=== PATIENT | female | born 1965 | race Caucasian/White ===

== ENCOUNTER 2019-07-20 07:31 | Day surgery (SDC) | payer OTHER, SELFPAY ==
[2019-07-19 09:27] VITALS: BMI 27.9
[2019-07-20 07:53] VITALS: BP 184/93; PULSE 84; RESP 18; TEMP 36.6; O2SAT 98
[2019-07-20] MEDS: sodium chloride 0.9% 1,000 ML 30 ML (07:56)
--- NOTE | 2019-07-20 08:08 | ANES.PREANE2 ---
Pre-Anesthetic Assessment Pre-Anesthetic Assessment: Height/Weight: Height 1.63 m Weight 73.936 kg Temp Pulse Resp BP Pulse Ox 97.9 F 84 18 184/93 98 07/20/19 07:53 07/20/19 07:53 07/20/19 07:53 07/20/19 07:53 07/20/19 07:53 Preop Diagnosis: asd Proposed Procedure: Operation Date: 07/20/19 09:00 Proposed Procedures p Colonoscopy(Not Applicable) - Sami Lai MD Was Beta Oleg taken within 24 hours: Yes Last intake: Intake Last Liquid Date 07/19/19 Last Liquid Time 20:30 Social: Social History: Alcohol and Tobacco Exam: Pre-Anes Outpt Exam: alert, oriented x 3, clear to auscultation bilaterally and regular rate & rhythm Airway: Submandibular: WNL Cervical ROM: WNL MP: 2 Dentition: False and Partials History/ROS: No significant history except as noted and No significant complaints Pulmonary: Pulmonary: None reported CV/HEM: CV/HEM: HTN : : None reported Hepatic: Hepatic: None reported GI: GI: None reported Metabolic: Metabolic: None reported Musc/skel: Musc/skel: None reported Neuropsych: Neuropsych: None reported Anesthetic Plan: ASA status: 2 Anesthesia: Anesthesia Evaluation and MAC Risk of > 500 ml blood loss (7ml/kg in children): No PFSH Anesthesia PFSH: Social History Smoking and tobacco status: current some day smoker Alcohol intake: current Alcohol intake frequency: few times a month Data Anesthesia Cardiac Studies: No Data to Display
--- NOTE | 2019-07-20 09:13 | W.PM.OPSUD ---
Surgery/Procedure H&P Update DATE OF PROCEDURE: July 20, 2019 DATE H&P PERFORMED: 06/25/19 PREOP DIAGNOSIS: asd PLANNED PROCEDURE: Operation Date: 07/20/19 09:00 Proposed Procedures p Colonoscopy(Not Applicable) - Sami Lai MD
[2019-07-20 09:32] VITALS: BP 127/82; PULSE 78; RESP 16; TEMP 36.2; O2SAT 96
[2019-07-20 09:42] VITALS: BP 136/71; PULSE 66; RESP 18; O2SAT 99
== END 2019-07-20 10:02 | disposition home or self-care (01) ==
PROVIDERS: Family Provider Family Medicine; PCP Internal Medicine; Visit Provider Internal Medicine
PROC: 0DJD8ZZ Inspection of Lower Intestinal Tract, Via Natural or Artificial Opening Endoscopic (ICD-10-PCS; CPT 45378; principal; 2019-07-20 09:00)
DX: Z12.11 Encounter for screening for malignant neoplasm of colon (principal); Z83.3 Family history of diabetes mellitus; I10 Essential (primary) hypertension; F17.210 Nicotine dependence, cigarettes, uncomplicated
CPT/HCPCS: 12345; 45378; J2001; J2704; J7030

== ENCOUNTER → 2019-10-19 08:33 | Outpatient (BNVA) | payer OTHER, SELFPAY | PROVIDERS: Family Provider Family Medicine; PCP Internal Medicine; Visit Provider Family Medicine | DX: E78.2 Mixed hyperlipidemia (principal); I10 Essential (primary) hypertension; F17.219 Nicotine dependence, cigarettes, with unspecified nicotine-induced disorders | CPT/HCPCS: 80053; 80061 ==

== ENCOUNTER → 2020-09-04 08:15 | Outpatient (BNVA) | payer OTHER, SELFPAY | PROVIDERS: Family Provider Family Medicine; PCP Internal Medicine; Visit Provider Family Medicine | DX: E78.2 Mixed hyperlipidemia (principal); I10 Essential (primary) hypertension; F17.219 Nicotine dependence, cigarettes, with unspecified nicotine-induced disorders; Z68.27 Body mass index [BMI] 27.0-27.9, adult; Z71.6 Tobacco abuse counseling; Z71.89 Other specified counseling | CPT/HCPCS: 80053; 80061; 82043; 85025 ==

== ENCOUNTER → 2020-09-05 15:18 | Outpatient (BNVA) | payer OTHER, SELFPAY | PROVIDERS: Family Provider Family Medicine; PCP Internal Medicine; Visit Provider Family Medicine | DX: D53.9 Nutritional anemia, unspecified (principal); R73.09 Other abnormal glucose; E78.2 Mixed hyperlipidemia; F17.219 Nicotine dependence, cigarettes, with unspecified nicotine-induced disorders; I10 Essential (primary) hypertension | CPT/HCPCS: 82607; 83036 ==

== ENCOUNTER → 2021-05-08 11:18 | Outpatient (BNVA) | payer OTHER, SELFPAY | PROVIDERS: Family Provider Family Medicine; PCP Family Medicine; Visit Provider Family Medicine | DX: I10 Essential (primary) hypertension (principal) | CPT/HCPCS: 80053 ==

== ENCOUNTER → 2021-07-13 11:45 | Outpatient (BNVA) | payer OTHER, SELFPAY | PROVIDERS: Family Provider Family Medicine; PCP Family Medicine; Visit Provider Nurse Practitioner Family | DX: Z20.822 Contact with and (suspected) exposure to COVID-19 (principal); R50.9 Fever, unspecified; R09.81 Nasal congestion | CPT/HCPCS: 87426 ==

== ENCOUNTER → 2021-11-06 12:08 | Outpatient (BNVA) | payer OTHER, SELFPAY | PROVIDERS: Family Provider Family Medicine; PCP Family Medicine; Visit Provider Family Medicine | DX: I10 Essential (primary) hypertension (principal); K21.9 Gastro-esophageal reflux disease without esophagitis; E78.2 Mixed hyperlipidemia; F17.219 Nicotine dependence, cigarettes, with unspecified nicotine-induced disorders | CPT/HCPCS: 80053; 80061; 82043; 85025 ==

== ENCOUNTER → 2022-06-11 09:31 | Outpatient (BNVA) | payer OTHER, SELFPAY | PROVIDERS: Family Provider Family Medicine; PCP Family Medicine; Visit Provider Family Medicine | DX: R00.2 Palpitations (principal) | CPT/HCPCS: 80048; 84443 ==

== ENCOUNTER 2023-03-18 14:03 | Outpatient (CLI) | payer OTHER, SELFPAY ==
--- NOTE | 2023-03-18 14:20 | XR_ITS ---
WS: [email or web address] Left wrist, 3 views, 03/18/2023 Clinical Data: chronic left wrist pain / s/p fall Comparison: None. Findings: No fractures or dislocations are seen. The carpal bones are intact. There is no soft tissue swelling. The distal radius and ulna are not remarkable. Impression: Negative left wrist.
--- NOTE | 2023-03-18 14:20 | XR_ITS ---
WS: [email or web address] Left foot, 3 views, 03/18/2023 Clinical Data: 5th metatarsal pain Comparison: None. Findings: No fractures or dislocations are seen. No bone destruction or erosion is noted. The joint spaces and soft tissues are normal. Impression: Negative left foot.
== END 2023-03-18 14:04 | disposition home or self-care (01) ==
PROVIDERS: PCP Family Medicine; Visit Provider Family Medicine
DX: M25.532 Pain in left wrist (principal); G89.29 Other chronic pain; M79.672 Pain in left foot; E78.2 Mixed hyperlipidemia; I10 Essential (primary) hypertension
CPT/HCPCS: 73110; 73630; 80053; 80061; 83721; 85025

== ENCOUNTER 2023-04-01 10:05 | Outpatient (CLI) | payer OTHER, SELFPAY ==
--- NOTE | 2023-04-01 10:19 | MM_ITS ---
WS: [email or web address] BILATERAL SCREENING DIGITAL TOMOSYNTHESIS MAMMOGRAM WITH CAD HISTORY: screening COMPARISON: 01/02/2019 Bilateral CC and MLO views with tomosynthesis and synthetic mammography submitted. Computer aided det ection analyzed. Breast composition: There are scattered areas of fibroglandular density. No suspicious masses, microc alcifications or architectural distortion. IMPRESSION: MM/[place] [id number] BI-RADS: 1-Negative FOLLOW UP: 1 Year Follow-up
== END 2023-04-01 10:06 | disposition home or self-care (01) ==
LOC: RAD 10:05
PROVIDERS: PCP Family Medicine; Visit Provider Family Medicine
DX: Z12.31 Encounter for screening mammogram for malignant neoplasm of breast (principal)
CPT/HCPCS: 77063; 77067

== ENCOUNTER → 2024-04-04 11:13 | Outpatient (BNVA) | payer OTHER, SELFPAY | PROVIDERS: PCP Family Medicine; Visit Provider Family Medicine | DX: I10 Essential (primary) hypertension (principal); E78.2 Mixed hyperlipidemia; R53.83 Other fatigue; D75.89 Other specified diseases of blood and blood-forming organs; F41.1 Generalized anxiety disorder; Z23 Encounter for immunization | CPT/HCPCS: 80053; 80061; 82306; 82607; 82746; 84443; 85025 ==

== ENCOUNTER 2024-04-09 08:45 | Outpatient (CLI) | payer OTHER, SELFPAY ==
--- NOTE | 2024-04-09 09:00 | MM_ITS ---
WS: [email or web address] BILATERAL SCREENING DIGITAL TOMOSYNTHESIS MAMMOGRAM WITH CAD HISTORY: breast cancer screening COMPARISON: 04/01/2023, 01/02/2019 Bilateral CC and MLO views with tomosynthesis and synthetic mammography submitted. Computer aided det ection analyzed. Breast composition: The breasts are heterogeneously dense, which may obscure small masses. No suspici ous masses, microcalcifications or architectural distortion. MM/MM scr BI tomosynthesis [id number] IMPRESSION: BI-RADS: 1 - Negative FOLLOW UP: 1 Year Follow-up
== END 2024-04-09 08:46 | disposition home or self-care (01) ==
LOC: RAD 08:46
PROVIDERS: PCP Family Medicine; Visit Provider Family Medicine
DX: Z12.39 Encounter for other screening for malignant neoplasm of breast (principal)
CPT/HCPCS: 77063; 77067

== ENCOUNTER → 2024-06-01 09:08 | Outpatient (BNVA) | payer OTHER, SELFPAY | PROVIDERS: PCP Family Medicine; Visit Provider Family Medicine | DX: E55.9 Vitamin D deficiency, unspecified (principal); R74.8 Abnormal levels of other serum enzymes | CPT/HCPCS: 80053; 82306 ==

== ENCOUNTER 2024-06-22 09:08 | Outpatient (CLI) | payer OTHER, SELFPAY ==
--- NOTE | 2024-06-22 09:36 | XR_ITS ---
WS: [email or web address] Left shoulder, 3 views, 06/22/2024 Clinical Data: pain reduced ROM after fall 1 month ago Comparison: None. Findings: No fractures or dislocations are seen. The AC joint is normal. The adjacent left clavicle, left scapu la and ribs are normal. The soft tissues are unremarkable. XR/XR shoulder LT min 2V* [id number] Impression: Negative left shoulder.
== END 2024-06-22 09:09 | disposition home or self-care (01) ==
PROVIDERS: PCP Family Medicine; Visit Provider Family Medicine
DX: S49.92XA Unspecified injury of left shoulder and upper arm, initial encounter (principal); W19.XXXA Unspecified fall, initial encounter
CPT/HCPCS: 73030

== ENCOUNTER 2024-07-06 12:58 | Outpatient (CLI) | payer OTHER, SELFPAY ==
--- NOTE | 2024-07-06 13:00 | MR_ITS ---
WS: [id number] MRI LEFT SHOULDER NONCONTRAST TECHNIQUE: Sagittal T2, coronal T1, T2 and proton density imaging. Axial gradient PDE imaging. CLINICAL INFORMATION: suspect rotator cuff tear, pain reduced rom after fall COMPARISON: None. FINDINGS: Advanced arthritis AC joint with fluid and edema. Moderate downsloping acromion with subacromial spurring. Impingement on the distal supraspinatus. Moderate joint effusion with tiny calcified loose bodies likely due to small rice bodies. This extends over the humeral head and greater tuberosity with a few tiny intra- articular loose bodies. Biceps tendon appears intact within the bicipital groove. Intra-articular biceps tendon appears intact. High-grade tear involving the distal supraspinatus with acromial impingement and tendinopathy. Slight retraction from the distal insertion measuring 6 to 7 mm. Tiny intrasubstance tear infraspinatus. Normal teres minor. Subscapularis tendon appears intact distally. MR/MR shoulder LT wo con* [id number] IMPRESSION: 1. Advanced arthritis of the AC joint with fluid and edema. Slight impingement on the distal supraspinatus. 2. High-grade tear of the distal supraspinatus distally with slight retraction measuring 6 mm. Tendinopathy supraspinatus. 3. Tiny intrasubstance tear infraspinatus. 4. Normal biceps tendon in the bicipital groove. 5. Moderate joint effusion with tiny loose bodies likely rice bodies.
== END 2024-07-06 12:59 | disposition home or self-care (01) ==
LOC: RAD 13:01
PROVIDERS: PCP Family Medicine; Visit Provider Family Medicine
DX: M75.102 Unspecified rotator cuff tear or rupture of left shoulder, not specified as traumatic (principal); W19.XXXA Unspecified fall, initial encounter; M13.812 Other specified arthritis, left shoulder; R93.6 Abnormal findings on diagnostic imaging of limbs; M25.412 Effusion, left shoulder
CPT/HCPCS: 73221

== ENCOUNTER → 2024-07-25 08:12 | Outpatient (BNVA) | payer OTHER, SELFPAY | PROVIDERS: PCP Family Medicine; Visit Provider Nurse Practitioner | DX: M75.102 Unspecified rotator cuff tear or rupture of left shoulder, not specified as traumatic (principal); M19.012 Primary osteoarthritis, left shoulder; M67.912 Unspecified disorder of synovium and tendon, left shoulder; N30.90 Cystitis, unspecified without hematuria | CPT/HCPCS: 36415; 73030; 80053; 81001; 85025; 87077; 87086; 87186 ==

== ENCOUNTER 2024-08-03 10:48 | Outpatient (CLI) | payer OTHER, SELFPAY ==
[2024-08-03 11:00] LABS: Add Urine Microscopic? NO
[2024-08-03 11:06] LABS: Bilirubin Urine Negative (Negative); Blood Urine Negative (Negative); Glucose Urine UA Negative (Normal); Ketones Urine Negative (Negative); Leukocyte Esterase Urine Negative (Negative); Nitrate Urine Negative (Negative); Protein Urine Negative (Negative); Specific Gravity, Urine 1.011 (1.005-1.030); Urine Appearance Clear (CLEAR); Urine Color Yellow (Yellow); Urobilinogen Urine 0.2 mg/dL (Negative)
[2024-08-03 11:54] LABS: Charge for UA Resulting for Rev
== END 2024-08-03 10:49 | disposition home or self-care (01) ==
LOC: LAB 10:50
PROVIDERS: PCP Family Medicine; Visit Provider Nurse Practitioner
DX: N30.90 Cystitis, unspecified without hematuria (principal)
CPT/HCPCS: 81003

== ENCOUNTER 2024-08-17 05:48 | Day surgery (SDC) | payer OTHER, SELFPAY ==
[2024-08-17] VITALS (9 sets, daily range): BP systolic 113–165; BP diastolic 65–80; PULSE 70–77; RESP 16–17; TEMP 36.1–36.7; O2SAT 92–100; BMI 29.1
[2024-08-17] MEDS: sodium chloride 0.9% 1,000 ML 30 ML IV (06:11)
[2024-08-17] MEDS: acetaminophen 1,000 MG/100 ML PIGGYBACK 400 MG IV (06:12)
[2024-08-17] MEDS: CELEcoxib 200 mg Capsule 400 MG PO (06:16)
[2024-08-17] MEDS: gabapentin 300 mg Capsule PO (06:17)
--- NOTE | 2024-08-17 06:34 | ANES.PREANE2 ---
Pre-Anesthetic Assessment Height/Weight: Height 5 ft 5 in Weight 175 lb Temp Pulse Resp BP Pulse Ox O2 Del Method 98.1 F 72 17 148/77 95 Room Air 08/17/24 06:02 08/17/24 06:02 08/17/24 06:02 08/17/24 06:02 08/17/24 06:02 08/17/24 06:03 Preop Diagnosis: Rotator cuff tear Operation Date: 08/17/24 07:00 Proposed Procedures p Rotator Cuff Repair - Open(Left) - Fabiana Ariza MD s Acromioplasty(Left) - Fabiana Ariza MD s Distal Clavicle Resection(Left) - Fabiana Ariza MD Was Beta Oleg taken within 24 hours: Yes Was Clonidine taken within 24 hours: N/A Last intake: Intake Last Liquid Date 08/16/24 Last Liquid Time 20:00 Last Solid Date 08/16/24 Last Solid Time 18:00 Social Tobacco and No alcohol Exam alert, oriented x 3, clear to auscultation bilaterally and regular rate & rhythm Airway Submandibular: within normal limits Cervical ROM: within normal limits Mallampati: Class III Dentition: false Anesthetic Plan ASA status: 3 Anesthesia: General and Regional (specify below) Other: No prior issues with anesthesia NPO since yesterday evening evening History of hypertension on lisinopril and metoprolol. Preop BP 148/77 History of GERD, controlled with omeprazole Prior Holter monitor showing sinus rhythm METs greater than 4 Plan for general anesthesia with preop nerve block Medications/Allergies Home Medications ?Medication ?Instructions ?Recorded ?Confirmed ?Last Taken ?Type aspirin 81 mg tablet,delayed 81 mg PO DAILY 09/04/20 08/16/24 08/09/24 History release omeprazole 40 mg capsule,delayed 40 mg PO DAILY #90 caps 02/04/22 08/16/24 08/16/24 Rx release tramadol 50 mg tablet 50 mg PO BID PRN pain #60 tabs 06/22/24 08/16/24 08/16/24 Rx atorvastatin 40 mg tablet 40 mg PO DAILY 08/16/24 08/16/24 08/16/24 History lisinopril 5 mg tablet 5 mg PO DAILY 08/16/24 08/16/24 08/16/24 History metoprolol succinate 50 mg 50 mg PO DAILY 08/16/24 08/17/24 08/17/24 History tablet,extended release 24 hr sertraline 100 mg tablet 100 mg PO DAILY 08/16/24 08/16/24 08/16/24 History sertraline 50 mg tablet 50 mg PO DAILY 08/16/24 08/16/24 08/16/24 History Allergies Allergy/AdvReac Type Severity Reaction Status Date / Time Penicillins Allergy Intermediate All over Verified 08/17/24 05:58 swelling diazepam (From Valium) Allergy Mild Unknown Verified 08/17/24 05:58 Current Medications Generic Name Dose Route Start Last Admin Trade Name Freq PRN Reason Stop Dose Admin Sodium Chloride 1,000 mls @ 30 mls/hr 08/17/24 06:00 08/17/24 06:11 Sodium Chloride 0.9% IV 08/18/24 05:59 30 mls/hr .Q24H ADRIANNA Administration PFSH Anesthesia Medical History Tendinopathy of left shoulder Supraspinatus tendon tear Osteoarthritis of acromioclavicular joint Smoker LAYNE (generalized anxiety disorder) GERD (gastroesophageal reflux disease) Pure hyperglyceridemia Right median nerve neuropathy Hyperlipidemia HTN (hypertension), benign Surgical History History of rhinoplasty due to fracture S/P D&C (status post dilation and curettage) x2 Family History Father Heart disease Grandmother Diabetes Social History Smoking and tobacco/nicotine status: current some day tobacco/nicotine user cigarettes Packs smoked per day: 0.50 Alcohol intake: current Alcohol intake frequency: few times a month Alcohol type: beer Substance/Drug Use: never Lives independently: Yes Household members: none Number of children: 1 Current occupational status: employed Current occupation: [employer] Pets and animals: Yes Pets & animals: cat(s) Leisure activites: other Leisure activities details: auctions Special thuy needs: No Agree to transfusion: Yes Data Anesthesia Cardiac Studies: Cardiac Event Monitor 06/21/22
--- NOTE | 2024-08-17 07:01 | P.HPUD_ITS ---
Surgery/Procedure H&P Update DATE OF PROCEDURE: August 17, 2024 DATE H&P PERFORMED: 08/15/24 H&P UPDATE INFORMATION: I have reviewed H&P completed within last 30 days, I have examined patient prior to procedure, No changes to prior documentation and H&P is in [facility] [place] EMR on date indicated PREOP DIAGNOSIS: Rotator cuff tear PRIMARY INDICATION FOR PROCEDURE: Date of Service: 07/06/24 Procedure(s): MR shoulder LT wo con* [id number] MRI LEFT SHOULDER NONCONTRAST IMPRESSION: 1. Advanced arthritis of the AC joint with fluid and edema. Slight impingement on the distal supraspinatus. 2. High-grade tear of the distal supraspinatus distally with slight retraction measuring 6 mm. Tendinopathy supraspinatus. 3. Tiny intrasubstance tear infraspinatus. 4. Normal biceps tendon in the bicipital groove. 5. Moderate joint effusion with tiny loose bodies likely rice bodies. PLANNED PROCEDURE: Operation Date: 08/17/24 07:00 Proposed Procedures p Rotator Cuff Repair - Open(Left) - Fabiana Ariza MD s Acromioplasty(Left) - Fabiana Ariza MD s Distal Clavicle Resection(Left) - Fabiana Ariza MD Related Problem List Diagnoses (1) Tear of left rotator cuff: (2) Osteoarthritis of acromioclavicular joint: (3) Tendinopathy of left shoulder: (4) Supraspinatus tendon tear: Qualifiers: Laterality: left Qualified Code(s): M75.102 - Unspecified rotator cuff tear or rupture of left shoulder, not specified as traumatic
[2024-08-17] MEDS: clindamycin 600 MG/50 ML PREMIX 100 MG IV (07:05)
--- NOTE | 2024-08-17 07:25 | ANES.PROC ---
Anesthesia Procedures Procedure/Date: 08/17/24 Nerve Block ^: Nerve Block 1: Main Anesthesia: general anesthesia Time Out Performed: Yes Consent: requested by attending/covering physician and from patient Nerve block location: interscalene Anesthesia monitors applied: pulse oximetry, EKG, BP cuff and oxygen Nerve block position: supine Anesthetic Used: ropivicaine 0.5% Amount of anesthesia used (mL): 30 Ultrasound used to: recognize landmarks Nerve Stimulator Used?: Yes Interscalene/Femoral BLK: other needle (pjunk 4inch) Injection: neg aspiration of heme Patient Tolerated Procedure: well Complications: none Additional Comments: decadron 4mg added to block
[2024-08-17] MEDS: vancomycin 1,000 MG SDV 1000 MG IRRIGATION (07:54)
--- NOTE | 2024-08-17 09:34 | P.OP_ITS ---
Operative Report Date of procedure: August 17, 2024 Pre-op diagnosis: Left complete rotator cuff tear with impingement and acromioclavicular joint osteoarthritis Post-op diagnosis: Left complete rotator cuff tear with impingement and acromioclavicular joint osteoarthritis Post-op findings: Complete rotator cuff tear involving the distal supraspinatus and infraspinatus tendons. Thickened bursal tissue. Procedure done: Left rotator cuff repair with acromioplasty and distal clavicle resection utilizing a Biosteon anchor 5.5 mm Implants: Katelynn Biosteon anchor 5.5 mm Specimens removed/disposition: None Pathology: None Surgeon: Fabiana Ariza MD Ground Products Director: Lesley Escobar, nurse practitioner, who services were required for positioning, retraction, exposure, manipulation of the arm, and closure. Anesthesia: General (Intubated, ASA 3 with preoperative interscalene block) Estimated blood loss (mL): 50 IV fluids (mL): 800 Urine output (mL): 0 (No [place]) Complications: None Findings: Large complete rotator cuff tear involving the supraspinatus and infraspinatus tendons. Condition: stable Disposition: PACU (Then return to same-day surgery for discharge to home) Brief History: This 59-year-old woman presented to the office with complaints of severe pain following a fall where she fell onto concrete and hurt her shoulder. When she was seen, she had an MRI which demonstrated advanced arthritis of the acromioclavicular joint with slight impingement on the distal supraspinatus. But there was a high-grade tear of the distal supraspinatus and tendinopathy of the supraspinatus. At the time of the MRI, there was also a tiny intrasubstance tear of the infraspinatus. There were noted to be rice bodies within the joint as well. After discussion in the office, the patient wished to proceed with rotator cuff repair to the left shoulder. Risks and complications were discussed with her, and consents were signed. Procedure: The patient was brought to the operating theater and underwent general intubated anesthesia, ASA 3, which was well-tolerated. The patient was placed in a beachchair position and subsequently the left upper extremity was prepped and draped in the usual fashion utilizing DuraPrep. The arm was draped free. A surgical pause was performed prior to commencement of the surgical procedure. At the time of the surgical pause, we confirmed the site and side of surgery as well as administration of appropriate preoperative antibiotics clindamycin 600 mg. MRI was also reviewed at that time. Following the surgical pause, an incision was made at approximately the level of the acromioclavicular joint extending across the anterolateral corner of the acromion and distally as necessary. Care was taken to avoid injury to the axillary nerve by limiting the distal extent of the incision. Dissection continued through skin and soft tissues using a scalpel. Hemostasis was obtained using electrocautery. Soft tissues were elevated off the acromion. An acromioplasty was then accomplished using a combination of a saw and a power rasp. With this, we were able to remove compression caused by the acromion. The rotator cuff was then evaluated to look for tears. There was noted to be complete tear of the rotator cuff beginning slightly anterior to the biceps and continuing posteriorly through the supraspinatus and infraspinatus tendons. Decision was made to address the acromioclavicular joint prior to addressing the rotator cuff. The acromioclavicular joint was exposed. A saw was then used to resect the dist al clavicle without difficulty. The undersurface of the clavicle was palpated and was slightly further debrided. A power rasp was used to further smooth the area. When this was felt to be adequately resected, the wound was irrigated. Attention was then directed to closure. The rotator cuff tear was further evaluated. The edges were freshened using a scalpel. The reattachment point bony on the humeral head was addressed with a rongeur to prepare a bed for appropriate repair. Repair was accomplished using a combination of a Biosteon anchor and direct repair of the rotator cuff. The tear orientation was noted to be primarily horizontal with a small vertical component. The rotator cuff was repaired primarily along the biceps tendon into the horizontal position which went through the infraspinatus and supraspinatus tendons. These were freshened with a scalpel. 1 Biosteon anchor was utilized to repair the rotator cuff. We had good repair and we were able to return the tendons to near normal positioning. Once they were attached with the anchor, a second layer of 0 Vicryl was placed to smooth the edge of the rotator cuff repair. The shoulder was placed through range of motion, there was noted to be no significant impingement. Therefore, attention was directed to closure. After the rotator cuff had been thus addressed, the shoulder was placed through further range of motion to assure there was no further evidence of rotator cuff tear or significant impingement. The wound was irrigated and closure was accomplished with 0 Vicryl in the capsular tissues overlying the acromioclavicular joint area as well as over the acromion and down into the deltoid muscle. 3-0 Monocryl was used to close the subcutaneous tissues followed by 4-0 Monocryl subcuticular closure. This was followed by Dermabond, Steri-Strips, and OpSite. The patient was placed in a sling shot style sling and was returned to the recovery room in satisfactory condition. The patient will be discharged to home to follow-up with me in the office as scheduled. There were no complications and no specimens. Related Problem List Diagnoses (1) Tear of left rotator cuff: (2) Osteoarthritis of acromioclavicular joint: (3) Supraspinatus tendon tear: (4) Tendinopathy of left shoulder:
--- NOTE | 2024-08-17 10:14 | SUR.PREOP ---
0655-Time out completed at bedside, Left interscalene block performed by Dr Ruiz, patient tolerated well
--- NOTE | 2024-08-17 10:30 | ANE.PACU2 ---
Inpatient post-anesthesia follow up: Airway intact: Yes Vital signs: Temperature 97.4 F Pulse Rate 70 Respiratory Rate 17 Blood Pressure 113/68 Pulse Oximetry 92 Oxygen Delivery Me thod Room Air Oxygen Flow Rate 6 Fraction of Inspir ed Oxygen Hydration adequate: Yes Nausea and vomiting: No Pain level: 1 Mental status: Baseline
== END 2024-08-17 10:30 | disposition home or self-care (01) ==
PROVIDERS: PCP Family Medicine; Visit Provider Specialist
PROC: (CPT 23410; principal; 2024-08-17 07:00)
PROC: (CPT 23130; 2024-08-17 07:00)
PROC: (CPT 23120; 2024-08-17 07:00)
DX: S46.012A Strain of muscle(s) and tendon(s) of the rotator cuff of left shoulder, initial encounter (principal); M75.42 Impingement syndrome of left shoulder; M19.012 Primary osteoarthritis, left shoulder; E78.5 Hyperlipidemia, unspecified; I10 Essential (primary) hypertension; F17.210 Nicotine dependence, cigarettes, uncomplicated; Z79.899 Other long term (current) drug therapy; K21.9 Gastro-esophageal reflux disease without esophagitis; Z79.82 Long term (current) use of aspirin; Z88.0 Allergy status to penicillin; Z88.8 Allergy status to other drugs, medicaments and biological substances; W19.XXXA Unspecified fall, initial encounter
CPT/HCPCS: 23410; 23120; 88305; C1713; J0131; J2250; J2704; J2710; J3010; J3370; J3490; J7030; J9999

== ENCOUNTER 2024-10-05 09:30 | Outpatient (RCR) | payer OTHER, SELFPAY | END 2024-10-27 23:59 | disposition home or self-care (01) | LOC: SPT 09:30 | PROVIDERS: Visit Provider Nurse Practitioner | DX: Z98.890 Other specified postprocedural states (principal) | CPT/HCPCS: 97110; 97161 ==

== ENCOUNTER 2024-10-28 05:00 | Outpatient (RCR) | payer OTHER, SELFPAY | END 2024-11-26 23:59 | disposition home or self-care (01) | LOC: SPT 05:00 | PROVIDERS: PCP Family Medicine; Visit Provider Nurse Practitioner | DX: Z98.890 Other specified postprocedural states (principal) | CPT/HCPCS: 97110 ==

== ENCOUNTER → 2025-01-18 09:15 | Outpatient (BNVA) | payer OTHER, SELFPAY | PROVIDERS: PCP Family Medicine; Visit Provider Family Medicine | DX: I10 Essential (primary) hypertension (principal); E78.2 Mixed hyperlipidemia | CPT/HCPCS: 80053; 80061 ==

== ENCOUNTER → 2025-01-25 08:37 | Outpatient (BNVA) | payer OTHER, SELFPAY | PROVIDERS: PCP Family Medicine; Visit Provider Family Medicine | DX: R73.09 Other abnormal glucose (principal) | CPT/HCPCS: 83036 ==

== ENCOUNTER 2025-04-12 09:38 | Outpatient (CLI) | payer OTHER, SELFPAY ==
--- NOTE | 2025-04-12 09:42 | MM_ITS ---
WS: [email or web address] VIEWS: MLO and CC views both breasts. 3D digital tomosynthesis is also included in this exam. Comparison made with prior exam of 01/02/2019, 04/01/2023. 04/09/2024.. Findings: The breasts are heterogeneously dense, which may obscure small masses. No suspicious mass, tumor calcification or architectural distortion. MM/MM scr BI tomosynthesis [id number] Impression: BI-RADS: 2 - Benign FOLLOW-UP: 1 Year Follow-up This mammogram was also analyzed by the Computer Aided Detection System R2 Imag e Banquet Supervisor.
== END 2025-04-12 09:39 | disposition home or self-care (01) ==
LOC: RAD 09:39
PROVIDERS: PCP Family Medicine; Visit Provider Family Medicine
DX: Z12.31 Encounter for screening mammogram for malignant neoplasm of breast (principal); R92.333 Mammographic heterogeneous density, bilateral breasts
CPT/HCPCS: 77063; 77067

== ENCOUNTER → 2025-05-10 08:41 | Outpatient (BNVA) | payer OTHER, SELFPAY | PROVIDERS: PCP Family Medicine; Visit Provider Family Medicine | DX: E11.9 Type 2 diabetes mellitus without complications (principal) | CPT/HCPCS: 80053; 80061; 82043; 83036; 84443 ==